=== PATIENT | male | born 1995 | race Caucasian/White ===

== ENCOUNTER → 2023-10-17 | Outpatient (CLI) | payer BC, SELFPAY ==
[2023-10-17 17:51] LABS: Hematocrit 44.8 % (40-54); Hemoglobin 15.6 g/dL (13.0-16.5)
[2023-10-17 18:03] LABS: ALB/GLOB Ratio 1.1 RATIO (0.9-2.4); AST(SGOT) 27 U/L (15-37); Alanine Aminotransfer ALT/SGPT 38 U/L (16-61); Albumin, Serum 4.1 g/dL (3.2-5.0); Alkaline Phosphatase 88 U/L (45-117); Anion Gap 6 (5-15); BUN 18 mg/dL (7-18); BUN/Creat Ratio 18.4 RATIO (10-20); Chloride 109 mmol/L (98-107); Cholesterol 148 mg/dL (200); Creatinine, Serum 0.98 mg/dL (0.70-1.30); EST Glomerular Filtration Rate 98 mL/min (>60); Est Glom Filt Rate - Afr Amer 119 mL/min (>60); Estradiol 21.3 pg/mL; Follicle Stimulating Hormone 2.2 mIU/mL; Globulin 3.6 g/dL (2.2-4.2); Glucose 88 mg/dL (74-106); High Density Lipoprotein 50 mg/dL; Luteinizing Hormone 9.5 mIU/mL; PSA,Total - Annual Screen 0.59 ng/mL (0.00-4.00); Potassium 3.8 mmol/L (3.5-5.1); Protein, Total 7.7 g/dL (6.4-8.2); Sodium Level 138 mmol/L (136-145); Thyroid Stim Hormone (TSH) 1.52 uIU/mL (0.358-3.74); Triglycerides 180 mg/dL; Very Low Density Lipoprotein 36 mg/dL (5-40)
[2023-10-22 12:09] LABS: PROLACTIN 15.7 ng/mL (3.6-31.5); Sex Hormone-binding Globulin 15.5 nmol/L (16.5-55.9); Testosterone, Free 8.26 ng/dL (5.00-21.00); Testosterone, Total 192 ng/dL (264-916)
== END | disposition home or self-care (01) ==
LOC: MTLAB 16:12
PROVIDERS: Referring Provider Registered Nurse; Visit Provider Registered Nurse
DX: Z12.5 Encounter for screening for malignant neoplasm of prostate (principal); R53.83 Other fatigue; R68.82 Decreased libido; R63.5 Abnormal weight gain; R35.0 Frequency of micturition; R39.16 Straining to void
CPT/HCPCS: 36415; 80053; 80061; 82627; 82670; 83001; 83002; 84146; 84153; 84270; 84402; 84403; 84443; 85014; 85018; 82626; G0103

== ENCOUNTER 2024-05-06 08:00 | Outpatient (RCR) | payer BC, SELFPAY ==
--- NOTE | 2024-05-06 09:05 | BH.SGPN.GN ---
Behaviors/Verbalizations/Mental Status: [] Eye contact is good. Motor activity is appropriate. Appearance is casual. Speech is Appropriate. Mood is anxious. Affect is congruent. Thoughts are linear and logical. No evidence of psychosis. Reviewed daily check in sheet and no reports of suicidal ideations or intent. Client Response/Progress/Benefit: [] Pt was an active participant in group discussions, first day in tx and engaged throughout. Attentive. Did well to identify 2 mental health wins including being able to get to group today and begin working more intentionally on his mental health. Additional win noted as getting his car started, reporting having to problem solve an unknown issue it had been having. Current stressor noted as struggling with managing being out of work while in tx. Benefited from group support, encouragement, and feedback. Will continue in IOP to prevent decompensation, promote mood stability, and increase use of healthy coping. Narrative Note: []
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
--- NOTE | 2024-05-06 10:10 | BH.SGPN.GN ---
Behaviors/Verbalizations/Mental Status: [] Pt alert and oriented, casually dressed and groomed. Eye contact good. Motor activity appropriate. Speech within normal limits. Affect congruent, mood depressed and anxious. Thoughts linear, logical, no signs of hallucinations or delusions. Client Response/Progress/Benefit: []Pt an active participant in group discussions on defining conflict (internal/external) and possible benefits to conflict. Attentive during psychoeducation on conflict styles (avoidant, accommodating, competing, cooperative) and engaged during group discussion in which peers identified the benefits and consequences to each conflict style. Pt identified that she tends to be avoidant with others but can easily switch to competing if he has been minimizing for too long. Benefited from increased awareness of the impact of conflict styles in mental health. Will continue in IOP tx to prevent decompensation, stabilize mood, and improve functioning to return to work. Narrative Note: []
--- NOTE | 2024-05-06 10:49 | BH.COMM_ITS ---
Communication Note Communication with Client Communication Note: Met with pt to complete initial paperwork and administer the CSSR-S screening and risk assessment. Pt is a moderate risk as pt denies any current SI, plan, or intent but he does admit to having active suicidal ideations a month ago that resulted in a hospitalization from April 24 to April 30, 2024. This was pt?s first hospitalization for suicide attempt. Pt had one previous suicide attempt when pt was 18 years old by overdose. Pt endorses thought of now, but no SI. No access to weapons. Pt is future oriented and reports being hopeful about treatment. Discussed case with Dr. Allen and pt will be admitted to [facility] tx with a diagnosis of MDD, recurrent severe without psychosis F 33.2
--- NOTE | 2024-05-06 11:53 | BH.MDN ---
Multi-Disciplinary Note Note 60-min Individual: Time Started:: 11:20 Date: 05/06/24 Purpose of session/treatment goals addressed:: To establish rapport, gather background psychosocial hx, and identify tx goals. Eye Contact:: Good Motor Activity:: Appropriate Appearance:: Casual Speech:: Appropriate Mood:: Anxious and Depressed Affect:: Congruent Thoughts:: Linear, Logical and No evidence of hallucinations/delusions noted Staff Interventions:: motivational interviewing, CBT techniques, rapport building, strengths perspective, treatment planning and goal setting Client Response:: This is the first day of treatment. States feeling ?hopeful? and excited to be in the program as he has not previously done group counseling. He was recently inpatient hospitalized due to worsening depression and suicidal ideation which he is hopeful the program will help him to better manage. Admits to a hx of struggles with treatment compliance and maintaining consistent providers due to difficulties in connecting with individual therapists in the past. Insight that not addressing his mental health needs led to hospitalization and impacted functioning both at home and work. When asked about goals for treatment pt states he would like to improve his ability to manage negative thoughts and better control my emotions, as well as rediscover who he is and what he enjoys in life outside of work and caregiving. He would also like to improve his communication and decrease interpersonal relationship conflict with his long-time girlfriend. Also has an interest in further processing his current occupation and whether this is the best fit for him. Risks/Concerns:: No current risks or concerns. Daily symptom tracker show sno suicidal ideations. Progress Toward Goals/Plan:: Progress limited as pt?s first day in IOP tx. Overall reports excitement regarding IOP group support, education, and routine of IOP on improving mental health. Endorses isolation, avoidance, and anhedonia on daily basis. Will continue in IOP to prevent decompensation, increase healthy support, in improve functioning Time Stopped:: 12:15
--- NOTE | 2024-05-07 02:00 | BH.SGPN.GN ---
Behaviors/Verbalizations/Mental Status: [] Eye contact is good. Motor activity is appropriate. Appearance is casual. Speech is Appropriate. Mood is dysthymic. Affect is congruent. Thoughts are linear and logical. No evidence of psychosis. Reviewed daily check in sheet and no reports of suicidal ideations or intent. Client Response/Progress/Benefit: [] Pt was an active participant in group discussions. Attentive. Did well to identify 2 mental health wins including being able to schedule an eye doctor appointment despite not liking the phone. Identified use of opposite action. Additional win noted as helping his girlfriend's grandpa around the barn. Current stressor noted as struggling with waking up at 330am and not being able to fall back to sleep today. Benefited from group support, encouragement, and feedback. Will continue in IOP to prevent decompensation, promote mood stability, and increase consistent use of healthy coping. Narrative Note: []
--- NOTE | 2024-05-07 11:30 | BH.NA ---
Physical Data Vital Signs Pulse Rate: 83 Blood Pressure: 140/70 Height/Weight Height: 1.75 m Weight:: 88.451 kg Weight in Pounds: 195.0 lbs Current Medication Compliance Medication Compliance Do you take your medication as prescribed?: Yes Nutritional History Appetite Nutritional Instructions: Describe your appetite:: Good Additional nutritional information:: Client states he has had an increased appetite. Functional Assessment Sleep Pattern Describe any problems with sleeping: Client states he sleeps about 4-5 hours per night. Sensory/Communication Assess Vision Problems Do you have any vision problems?: Glasses Communication Problems Do you have difficulty understanding what people are saying?: No Medical Problems/History Metabolic Conditions Metabolic: Other (See comments) (low testosterone) Pain Assessment Do you have acute or chronic pain?: No Surgical History Surgical History Have you had any surgeries? If so, list type and date:: Yes (ankle/foot x2, wisdom teeth, tonsils, ear tubes) Substance Abuse Substance Abuse Please describe substance abuse in the last 30 days:: Client denies current alcohol use. Client states he has been a cigarette smoker since age 18 and currently smokes 1/2 pack per day. Client currently uses marijuana daily. Client reports between ages [age] some cocaine, Xanax, Adderall, Vyvanse use. Client states he usually has about 350-400mg caffeine per day, usually a cup of coffee and 1-2 energy drinks. Mental Status Summary Mental Status Significant Findings/Observations on Appearance and Mood:: Client is alert and oriented x 4. Client is casually groomed. Client is cooperative with assessment. Client makes good eye contact. Client's voice has normal rate and volume. Client has a somewhat restricted affect. Client makes logical associations and has normal processing. Client states he is no longer having daily hallucinations of shadows, but does admit mild paranoia (people judging him, following) has been ongoing. Client denies active SI, denies intent/plan. Suicide Assessment Suicidal Ideation Are you currently or have you been suicidal in the past?: Yes Suicidal Intentional Rating Scale (SIRS): Suicidal thoughts (past) Physician Notification Past Psychiatric History MH Treatment Hx Past Psychiatric Medications:: Wellbutrin, Trintellix Age of first mental health symptoms: Client states he was diagnosed with dysthymic disorder as a kid and was first on medications for his mental health at age 15. Describe (age, circumstance, etc) any past hospitalizations: [facility] 04/24-04/30/24 for SI, paranoia, hallucinations Current providers for mental health treatment (counselor, psychiatrist, test case developer, etc.): [facility] Risk Assessment Age Age: Less than 60 Mental Status Mental Status: Willing & able to ask for assistance when needed Physical Status Physical Status: No problems Impairments Impairments: None Elimination Elimination: Continent AND independent Gait or Balance Gait or Balance: Walks independently Hx of Falls History of falls in the past 6 months: No known history Medications/Substances Psychotropics:: Antidepressants, Antipsychotics and Antihistamines (e.g. Benadryl) Medications/substances used within the past 24 hours or ordered to administer: 3 or more of the medications/substances listed above Total Score Total Points:: 2 RN Summary of Impressions Impressions Recommendations Impressions: Psychiatric Issues: 1. Major depressive disorder, recurrent, severe without psychosis 2. Anxiety disorder, NOS (F41.9) 3. PTSD 4. Strong cluster B traits 5. History of alcohol use disorder 6. Primary support issues Level of Care How do the client's current symptoms and functional deficits support need for this level of care?: Client was referred to IOP after a recent hospitalization at [facility] 04/24-04/30/24 for SI, paranoia and hallucinations. Client states in January 2024, his grandma unexpectedly and he states he had a very hard time with it. Client states I just wanted to disappear. Client reports some mild paranoia, which he states has been ongoing for a long time. Client states he had been having daily hallucinations of shadows, but states those have basically stopped since hospitalization. Client denies current SI. Client does endorse avoidance, some irritability, and isolation still. IOP will promote gains and prevent further decompensation while providing social support and skills training.
[2024-05-07 11:52] VITALS: BP 140/70; PULSE 83
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
--- NOTE | 2024-05-07 12:32 | BH.DR.ITP ---
Initial Treatment Plan Patient Information Visit Information: ADMISSION DATE: EXPECTED LOS: 4-6 weeks Problems/Symptoms Problem #1:: Depression Symptom:: Sadness, hopelessness, guilt, worthlessness, recent suicidal ideation, current passive thoughts of , irritability Problem #2:: Anxiety Symptom:: Worry, panic attacks, rumination, avoidance, flashbacks, triggers
--- NOTE | 2024-05-11 09:05 | BH.SGPN.GN ---
Behaviors/Verbalizations/Mental Status: [] Eye contact is good. Motor activity is appropriate. Appearance is casual. Speech is Appropriate. Mood is anxious. Affect is congruent. Thoughts are linear and logical. No evidence of psychosis. Reviewed daily check in sheet and no reports of suicidal ideations or intent. Client Response/Progress/Benefit: [] Pt participated at times. Attentive. Daily symptom tracker notes 5 for anxiety and /5 for depression. Mood is ?anxious?. Introducing habit and routine changes to benefit mental health. Reports ? putting music on this morning? which was a small task however was extremely helpful to increase motivation and energy. He continues to struggle overall with depression and anxiety on a daily basis however has seen improvement. Benefited from group support, encouragement, and feedback. Will continue in IOP to maintain safety, prevent decompensation/re-admission, and improve functioning to return to work Narrative Note: []
--- NOTE | 2024-05-11 10:10 | BH.SGPN.GN ---
Behaviors/Verbalizations/Mental Status: []Patient was alert and oriented, casually dressed and groomed. Eye contact good. motor activity appropriate. speech within normal limits. Affect congruent, mood anxious. Thoughts linear, logical, no signs of hallucinations or delusion. Client Response/Progress/Benefit: [] Pt participated in the group discussions AEB providing input, nodding and taking notes. Attentive during psychoeducation Goal Setting. Participated during the discussion on common barriers. Pt stated personal barriers to accomplishing goals include lack of motivation and fear of changes that come with goals. Group also identified benefits of goals as sense of purpose, improved self-confidence, more motivation for other goals, sense of accomplishment, and improved mental health. Pt identified personal benefits to goal setting. Benefited from increased awareness of mental health benefits of goals as well as psychoeducation on SMART goal criteria. Will continue in IOP to prevent decompensation, improve distress tolerance skills, and reduce negative self-talk. ??? Narrative Note: []
--- NOTE | 2024-05-11 12:32 | BH.MDN ---
Multi-Disciplinary Note Note 45-min Individual: Time Started:: 11:30 Date: 05/11/24 Purpose of session/treatment goals addressed:: Purpose of session was to identify behaviors and [id number] processes reinforcing pt sx of depression and anxiety. Eye Contact:: Good Motor Activity:: Appropriate Appearance:: Casual Speech:: Appropriate Mood:: Anxious and Dysthymic Affect:: Congruent Thoughts:: Linear, Logical and No evidence of hallucinations/delusions noted Staff Interventions:: thought challenging, psychoeducation on: (BPD relationship cycle), CBT techniques, strengths perspective, goal setting and taught coping skills (distress tolerance) Client Response:: This is pt?s second week of treatment, reports finding the shared group experience to be beneficial in normalizing pt?s mental health struggles as well as encouraging consistent engagement in groups and individual session. Noted that he has felt more hopeful and motivated since leaving inpatient hospitalization and is beginning to worry he will ?lose steam? and struggle to fall back into old patterns of behavior once he is comfortable again. Therapist normalized this for pt and discussed importance of continued therapy post IOP d/c as well as developing a continued maintenance plan to reduce likelihood of decompensation. Pt went on to describe trying to adjust to being off of work while in IOP tx and is finding it hard to know what to do with himself throughout the day. 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 Reports that when home alone his thoughts begin to wander to unhealthy places, Described negative self-talk, fear of failure, and worrying about his girlfriend rejecting or cheating on him. Stated this leads to pt acting as if these thoughts are true, often times resulting in conflict within his relationship. Receptive of psychoeducation on Borderline Personality Disorder and common traits within the BPD relationship cycle. Discussed skills for pt to practice sitting with discomfort and not acting on urges to seek reassurance or test his girlfriend?s loyalty to the relationship. Risks/Concerns:: No current risks or concerns. Daily symptom tracker show sno suicidal ideations. Progress Toward Goals/Plan:: Some progress noted. Pt reports connecting with fellow participants and is finding shared environment to be supportive. Pt noted that he is struggling with medication frustrations due to feeling hazy and disconnected after taking his morning medications. Additionally, pt noted adding unnecessary stress to his daily life due to struggling with adjusting to time off of work. Expressed feeling he should be doing more to contribute to household responsibilities. Continues to endorse racing thoughts, restlessness, loss of enjoyment, and irritability. Recommended continued IOP tx to improve functioning, increase self-confidence, and prevent decompensation. Time Stopped:: 12:10
--- NOTE | 2024-05-13 09:05 | BH.SGPN.GN ---
Behaviors/Verbalizations/Mental Status: [] Eye contact is good. Motor activity is appropriate. Appearance is casual. Speech is Appropriate. Mood is anxious. Affect is congruent. Thoughts are linear and logical. No evidence of psychosis. Reviewed daily check in sheet and no reports of suicidal ideations or intent. Client Response/Progress/Benefit: [] Pt was an active participant in group discussions. Attentive. Daily symptoms tracker notes 3/5 for anxiety and /5 for depression. Reports improvement in his sleep schedule. Discussed how this positively impacts his mental health. Reports that he is engaged more with his family and is beginning to get pleasure from activities. While he is ?staying busy? he continues to report that his depression, anxiety, and apathy continues to impact his functioning. 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 Progress noted. Benefited from group support, encouragement, and feedback. Will continue in IOP to maintain safety, prevent decompensation/re-admission, and improve functioning to return to work. Narrative Note: []
--- NOTE | 2024-05-13 10:15 | BH.SGPN.GN ---
Behaviors/Verbalizations/Mental Status: []Client alert and oriented, casually dressed and groomed. Eye contact good. Motor activity appropriate. Speech within normal limits. Affect constricted, mood depressed. Thoughts linear, logical, no signs of hallucinations or delusions Client Response/Progress/Benefit: [] pt responded well to session, contributing to discussion and engaged during the activity. Group identified the benefits of change which included: personal growth, increased confidence, improving mental health, progressing, and becoming resilient. Worked with the group to identify barriers to change and pt identified personal barriers as fear of failure, fear of success, and time. pt participated along with group in activity where they discussed the emotions related to change. Benefited from increased awareness and understanding of emotions, benefits, and barriers related to change. Will continue IOP tx to prevent decompensation, gain healthy coping skills, and improve daily functioning. Narrative Note: []
--- NOTE | 2024-05-14 11:10 | BH.SGPN.GN ---
Behaviors/Verbalizations/Mental Status: [] Pt alert and oriented, casually dressed and groomed. Eye contact fair. Motor activity appropriate. Speech within normal limits. Affect congruent, mood depressed. Thoughts linear, logical, no signs of hallucinations or delusions. Client Response/Progress/Benefit: [] Pt responded well to session, engaged in the experiential activity and attentive throughout group processing. Interactive discussion with peers on what FOF has kept them from which included; trying new things, therapy, and medications as all as starting or ending relationships/jobs. Pt completed fear of failure worksheet and was able to identify thoughts and behaviors that reinforce personal fear of failure. Pt participated in small group discussion regarding strategies to overcome fear of failure. Identified struggling most with thinking i'm not good enough. Strategies to overcome FOF identified as not assuming others' expectations or boundaries. ?Appeared to benefit from increased knowledge of strategies to combat fear of failure and gaining self-awareness. Pt will continue IOP tx to prevent decompensation/re-admission to psych, increase healthy coping, and improve functioning to return to work. Narrative Note: []
== END 2024-05-15 23:59 ==
LOC: BHIOP 08:00
PROVIDERS: Referring Provider Psychiatry & Neurology Psychiatry; Visit Provider Psychiatry & Neurology Psychiatry
DX: F33.2 Major depressive disorder, recurrent severe without psychotic features (principal)
CPT/HCPCS: S9480; 90834; 90837; 90853

== ENCOUNTER 2024-05-18 07:37 | Outpatient (RCR) | payer BC, SELFPAY ==
--- NOTE | 2024-05-14 10:15 | BH.SGPN.GN ---
Behaviors/Verbalizations/Mental Status: []Pt alert and oriented, neatly dressed and groomed. Eye contact good. Motor activity appropriate. Speech within normal limits. Affect congruent, mood euthymic. Thoughts linear, logical, no signs of hallucinations or delusions. Client Response/Progress/Benefit: [] Pt responded well to session, engaged in the experiential activity and attentive throughout group processing. Pt reported fear of failure has kept Pt from pursing passions. Pt completed fear of failure worksheet and was able to identify thoughts and behaviors that reinforce personal fear of failure including negative self-talk, isolation, and self-sabotage. Pt participated in small group discussion regarding strategies to overcome fear of failure. Identified wanting to work on thinking in the hood and practicing self-compassion. ?Appeared to benefit from increased knowledge of strategies to combat fear of failure and gaining self-awareness. Pt will continue IOP tx to prevent decompensation, combat distortions, and increase distress tolerance skills. Narrative Note: []
[2024-05-16 01:34] VITALS: BP 140/70; PULSE 83
--- NOTE | 2024-05-18 09:00 | BH.SGPN.GN ---
Behaviors/Verbalizations/Mental Status: [] Eye contact is good. Motor activity is appropriate. Appearance is casual. Speech is Appropriate. Mood is anxious. Affect is congruent. Thoughts are linear and logical. No evidence of psychosis. Reviewed daily check in sheet and no reports of suicidal ideations or intent. Client Response/Progress/Benefit: [] Pt participated at times during the group discussions. Attentive. Daily symptom tracker notes 2/5 for anxiety and 1/5 for depression. Pt reports being more consistent with healthy habits such as daily exercising, however continues to struggles with anxiety and overall mental health. He is adjusting to IOP and being away from work. Situational stressors are causing significant ruminations which are impacting overall mood and functioning. Benefited from group support, encouragement, and feedback. Will continue in IOP to maintain safety, prevent decompensation/re-admission to psych, and to improve functioning to return to work Narrative Note: []
--- NOTE | 2024-05-18 10:20 | BH.MDN ---
Multi-Disciplinary Note Note 30-min Individual: Time Started:: 10:20 Date: 05/18/24 Purpose of session/treatment goals addressed:: Expressed stress, anger, and depression related to disability paperwork during process group. This stressor was causing ruminations, financial concerns, and overall mental health functioning inhibiting his able to focus on IOP. Eye Contact:: Good Motor Activity:: Appropriate Appearance:: Casual Speech:: Appropriate Mood:: Anxious and Irritable Affect:: Congruent Thoughts:: Linear, Logical and No evidence of hallucinations/delusions noted Staff Interventions:: thought challenging and other (processed and problem-solved for the entire session. ) Client Response:: Pt was admitted to psychiatric unit on 04/24/24 and has not returned to work. He has communicated effectively with his employer regarding expected return to work, however the third [employer] party company that manages his FMLA has not received any formal paperwork. According to patient he has spend several hours speaking with his company and was assured the necessary form were faxed last week. No paperwork has yet been received by our program. Pt's 14 day fabio period to complete paperwork has passed and he is anxious and concerned. Uncertain and has limited benefit from contacting the source. Currently finances are tight and has has bills due. This stressor has made it extremely difficulty to focus on his mental health. Risks/Concerns:: No risks or concerns noted. Denies SI. Progress Toward Goals/Plan:: Limited progress due in part to ruminations related to FMLA paperwork. Majority of the session was used to problem-solve solutions and introduce coping strategies to help mitigate the impact. Did well to reframe and challenge thoughts to decrease emotional intensity. I just woke up focused on this. Able to brainstorm a few solutions and encouraged pt to reach out today. Glad I came her first and didn't call them. Session was able to use distressing situation as on opportunity to work on distress tolerance, acceptance, problem-solving, and assertive communication skills. Time Stopped:: 10:45
--- NOTE | 2024-05-18 11:15 | BH.SGPN.GN ---
Behaviors/Verbalizations/Mental Status: []Pt alert and oriented, casually dressed and groomed. Eye contact good. Motor activity appropriate. Speech within normal limits. Affect congruent, mood depressed and anxious. Thoughts linear, logical, no signs of hallucinations or delusions. Client Response/Progress/Benefit: [] Pt responded well to session AEB Pt listening attentively to others and providing input during group discussion on the pay offs and costs of the different communication styles. Pt able to connect how current communication style impacts mental health. Connected with peers? comments about importance of using assertive communication. Pt seemed to benefit from increasing awareness of healthy strategies to improve communication and worked within small group to identify assertive communication approaches to example scenarios. Identified wanting to work on using more I statements when communicating with others. Will continue IOP tx to prevent decompensation, improve mood stability, and improve daily functioning. ? Narrative Note: []
--- NOTE | 2024-05-20 09:02 | BH.SGPN.GN ---
Behaviors/Verbalizations/Mental Status: [] Client alert and oriented, casual appearance. Eye contact good. Motor activity appropriate. Speech within normal limits. Affect congruent, mood euthymic. Thoughts linear, logical, no signs of hallucinations or delusions. Reviewed client's symptom tracker, no risk for suicidal ideation, plan, or intent. Client Response/Progress/Benefit: [] Client responded well to session AEB listening to others and sharing thoughts/feelings. Client reported mental positive as being consistent with exercising 30 to 45 minutes a day. Client noted he has found exercise to be helpful for his mood and energy levels. Client stated mental positive as getting approved for a small loan to help with his bills because recently has been struggling with finances and this has been a significant stressor for him. Client stated current stressor as not having enough structure throughout his week and he finds having too much downtime to be negative for his mental health. Appeared to benefit from support from peers. Will continue IOP tx to challenge distorted thoughts, improve healthy coping skills, and prevent decompensation. Narrative Note: []
--- NOTE | 2024-05-20 10:10 | BH.SGPN.GN ---
Behaviors/Verbalizations/Mental Status: [] Pt alert and oriented, casually dressed and groomed. Eye contact good. Motor activity appropriate. Speech within normal limits. Affect full, mood content. Thoughts linear, logical, no signs of hallucinations or delusions. Client Response/Progress/Benefit: [] Pt was an engaged participant AEB listening attentively to others, taking notes, and providing feedback in group discussions. Attentive during psychoeducation AEB by note taking. Pt worked along with peers in groups to define inappropriate guilt and appropriate guilt. Group worked together to provide examples of both inappropriate and appropriate guilt. Group identified a canceling plans and snapping at kids as appropriate guilt examples. Group identified setting a being in a down mood and taking responsibility for other?s emotions as having inappropriate guilt. Pt able to connect impact inappropriate guilt can have on MH and overall functioning. Identified struggling at times with taking responsibility for his girlfriend's emotions resulting in inappropriate guilt. Benefited from increased awareness of guilt and the differences between appropriate and inappropriate guilt. Pt to continue IOP tx to prevent decompensation, gain healthy coping skills, and increase emotion regulation skills. Narrative Note: []
--- NOTE | 2024-05-20 12:06 | PCM.BH.PN_ITS ---
Progress Note Progress Note: History of Present Illness/Interim History: The patient is a 29-year-old single male with a history who is seen in follow-up at the [facility] behavioral health IOP. I last saw the patient 2 weeks ago and at that time his hydroxyzine was reduced from 50 mg to 25 mg. He admits that he is less tired and has less brain fog since the decrease in this medication. His mood is good and his anxiety is well-controlled. He feels he has learned valuable skills in the IOP and is able to apply them to his mental health issues. He does report increased appetite and some weight gain in recent weeks that he feels might be due to the Abilify. He is exercising and eating healthily also. He denies passive thoughts of , suicidal ideation, homicidal ideation, hallucinations or delusions. Current Psychiatric Medications: [] Abilify 5 mg p.o. daily (x 3 weeks); Lexapro 10 mg p.o. daily (x 3 weeks); trazodone 50 mg p.o. nightly; hydroxyzine 25 mg once or twice daily as needed for anxiety. Mental Status Examination: [] The patient is a 29-year-old male who appears normal for stated age and is casually dressed and groomed with good hygiene. He has no psychomotor agitation or retardation and is ambulatory with a normal gait. Eye contact is good and speech is normal rate and rhythm and fluent with no pressure. Mood is depressed and anxious. Affect is mildly constricted. Thought process is goal-directed and organized. Thought content: There is no evidence of passive thoughts of , suicidal ideation, homicidal ideation, plan for suicide, hallucinations or delusions. Reality testing is intact. Judgment is intact. Insight fair. Impulsivity is moderate to high. Diagnoses: [] 1. Major depressive disorder, recurrent, severe without psychosis 2. Anxiety disorder, NOS (F41.9) 3. PTSD 4. Strong cluster B traits 5. History of alcohol use disorder 6. Primary support issues Plan: [] The patient will continue the IOP in behavioral health at [facility] as the structure, support, education and group therapy will hopefully prevent worsening of the patient's symptoms which could require rehospitalization. He felt safe during the interview and if it anytime he does not feel safe he has agreed to let us know or go to the emergency room. The patient agrees to add metformin 500 mg p.o. twice daily to help prevent weight gain from his Abilify. Prescription is sent in for this. The risk, options, possible complications and side effects of the medications were discussed with the patient and he understands and accepts these. He agrees also to stay sober from all drug or alcohol use and not to use any energy drinks. He will continue to follow-up with his outpatient providers and I will see the patient in follow-up while he is in the IOP.
--- NOTE | 2024-05-20 12:36 | BH.MDN ---
Multi-Disciplinary Note Note 45-min Individual: Time Started:: 11:29 Date: 05/20/24 Purpose of session/treatment goals addressed:: To address current stressors impacting pt mood stability, as well as begin working on promoting self-care balance and engagement. Eye Contact:: Good Motor Activity:: Appropriate Appearance:: Casual Speech:: Appropriate Mood:: Anxious and Depressed Affect:: Congruent Thoughts:: Linear, Logical and No evidence of hallucinations/delusions noted Staff Interventions:: thought challenging, motivational interviewing, CBT techniques, strengths perspective and goal setting Client Response:: Pt receptive of session, engaged throughout. Reports struggling with continued frustrations associated with short-term disability paperwork. Expressed some relief following conversation with cardiac rehabilitation program director regarding the paperwork and feels more hopeful as a result. Went on to share difficulties in adjusting to not having a consistent schedule since inpatient hospitalization about a month ago. Describes struggling with knowing how to spend his time, worry about finances, and being able to transition back to work after having so much time off. Receptive of working with therapist to explore how he?s spending time as well as ways to better utilize the time off. 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 Noted struggling most with daytime and has realized that since beginning coparenting responsibilities with his girlfriend 3 years ago, he has slowly lost himself and forgotten what he enjoys. Noted limited to no self-care in the last year. Fear that if he begins engaging in regular self-care now, he will not be able to maintain the practices upon return to work. Pt receptive of thought challenge and noted that he and his girlfriend may be able to trade off time in the evening where one person practices self-care while the other manages caregiving. Believes she will be receptive as pt is concerned his girlfriend isn't doing much self-care sheldon either. Shared plans to try incorporating exercise and games with friends into his schedule this week. Risks/Concerns:: None noted, Pt denies SI plan or intent as of this date 05/20/24 Progress Toward Goals/Plan:: Progress variable. Pt reports connecting with groups and finding the program to be benefical. Notes applying deep breathing, meditation, stepping away, and saying the alphabet in his head when feeling increased stress. Pt reports this is helpful and his irritability is reduced as a result. Expressed ongoing difficulties with feeling like a burden, a need to try and been constantly productive or doing something and fear of failure. Recommended continued IOP tx to improve mood stability, promote self-compassion, and prevent decompensation. Time Stopped:: 12:13
--- NOTE | 2024-05-22 09:05 | BH.SGPN.GN ---
Behaviors/Verbalizations/Mental Status: [] Eye contact is good. Motor activity is appropriate. Appearance is casual. Speech is Appropriate. Mood is anxious. Affect is congruent. Thoughts are linear and logical. No evidence of psychosis. Reviewed daily check in sheet and no reports of suicidal ideations or intent. Client Response/Progress/Benefit: [] Pt participated at times during the group discussion. Attentive. Daily symptom tracker notes /5 for anxiety. Overall her reports that his mood is ?better? and ? I?m taking time to acknowledge that?. Less impulsive and irritable which has helped with decision-making as well as relationships. Emotion is content. Progress noted. Benefited from group support, encouragement, and feedback. Will continue in IOP to maintain safety, prevent decompensation/re-admission to psych unit, and improve functioning to return to work. Narrative Note: []
--- NOTE | 2024-05-22 10:10 | BH.SGPN.GN ---
Behaviors/Verbalizations/Mental Status: [] Eye contact is good. Motor activity is appropriate. Appearance is casual. Speech is Appropriate. Mood is content. Affect is congruent. Thoughts are linear and logical. No evidence of psychosis. Client Response/Progress/Benefit: [] Pt receptive of session, actively engaged throughout AEB taking notes, providing input, and contributing in group discussion. Appeared to connect with group topic of automatic thoughts and cognitive distortions, as well as the impact of thought patterns on mental health, coping behaviors, and relationships. This particular group is very heavy on psychoeducation and pt appeared to connect with distortions and how they can impact functioning. Identified struggling with jumping to conclusions, overgeneralization, and labeling distortions. Pt appeared to benefit from gaining insight on distorted thinking patterns and how this impacts overall mental health. Will continue IOP to improve ability to function, and prevent decompensation. Narrative Note: []
--- NOTE | 2024-05-22 11:12 | BH.SGPN.GN ---
Behaviors/Verbalizations/Mental Status: [] Eye contact is good. Motor activity is appropriate. Appearance is casual. Speech is Appropriate. Mood is content. Affect is congruent. Thoughts are linear and logical. No evidence of psychosis. Client Response/Progress/Benefit: [] Pt was an active participant during group discussion. Pt was placed in a smaller group for activity and participated in identifying/combatting example distortions with peers. Pt was engaged in the smaller group, participated in group interactions to brainstorm answers, and appeared to be comprehending cognitive distortions. Pt stated could connect with many of the distortions covered in group. Benefited from gaining further insight and awareness of cognitive distortions as well as practicing ways to reframe and challenge thoughts. Will continue in IOP tx to improve emotinal regulation, increase healthy coping skills, and prevent decompensation. Narrative Note: []
--- NOTE | 2024-05-25 09:00 | BH.SGPN.GN ---
Behaviors/Verbalizations/Mental Status: [] Eye contact is good. Motor activity is appropriate. Appearance is casual. Speech is Appropriate. Mood is anxious. Affect is congruent. Thoughts are linear and logical. No evidence of psychosis. Reviewed daily check in sheet and no reports of suicidal ideations or intent. Client Response/Progress/Benefit: [] Pt participated at times during the group discussion. Attentive. Daily symptom tracker notes 2/5 for anxiety and /5 for depression. ?I?m on a good sleep schedule?. Shared struggles over the weekend reporting ?bouts of depression? and an anxiety attack while shopping. Progress noted. Benefited from group support, encouragement, and feedback. Will continue in IOP to prevent decompensation/re-admission to psych unit, maintain safety, increase healthy coping, and improve functioning to return to work. Narrative Note: []
--- NOTE | 2024-05-25 10:15 | BH.SGPN.GN ---
Behaviors/Verbalizations/Mental Status: []Client alert and oriented, casually dressed and groomed. Eye contact good. Motor activity appropriate. Speech within normal limits. Affect congruent, mood anxious. Thoughts linear, logical, no signs of hallucinations or delusions. Client Response/Progress/Benefit: [] Pt was an active participant AEB taking notes and engaging in group activity. Connected with the topic of pitfalls and listened to group discussion on barriers that prevent from choosing a healthier path to mental wellness. Group worked together to identify examples of personal pitfalls. These examples included; shutting down, not asking for help, negative thinking patterns, and self-deprecation. Pt benefited from group as Pt learned to better identify potential barriers to improving mental health symptoms. Pt will continue IOP tx to prevent decompensation, improve distress tolerance skills, and increase ability to function at work. Narrative Note: []
--- NOTE | 2024-05-25 11:15 | BH.SGPN.GN ---
Behaviors/Verbalizations/Mental Status: []Client alert and oriented, casually dressed and groomed. Eye contact good. Motor activity appropriate. Speech within normal limits. Affect congruent, mood content. Thoughts linear, logical, no signs of hallucinations or delusions. Client Response/Progress/Benefit: [] Pt receptive of session, engaged throughout AEB Pt actively listening and contributing to discussion as well as taking notes.? Pt participated in the experiential activity and did well to communicate ideas with peers and manage emotions. Pt attentive as group processed how the emotions and perspective of the group impacted the activity. Group worked together to identify different coping skills to help manage pitfalls. Pt identified a pitfall they struggle with as low motivation. Pt plans to work on their pitfall by taking small steps to begin opposite action daily. Benefited from identifying personal pitfalls and strategies to overcome these pitfalls. Pt will continue IOP tx to prevent decompensation, improve daily functioning, and gain skills to improve mood stability. Narrative Note: []
--- NOTE | 2024-05-27 09:00 | BH.SGPN.GN ---
Behaviors/Verbalizations/Mental Status: [] Eye contact is good. Motor activity is appropriate. Appearance is casual. Speech is Appropriate. Mood is content. Affect is congruent. Thoughts are linear and logical. No evidence of psychosis. Reviewed daily check in sheet and no reports of suicidal ideations or intent. Client Response/Progress/Benefit: [] Pt was an active participant in group discussions. Attentive. Daily symptom tracker notes 2/5 for depression and /5 for anxiety. Did well to identify 2 mental health wins including continuing to engage in self-care, reporting he got a haircut and new glasses. Additionally, identified a sense of relief following positive news about his FMLA. Stressor noted as increased restlessness as he does not know what to do with himself when not at IOP. Benefited from group support, encouragement, and feedback. Will continue in IOP to prevent decompensation, promote ongoing mood stability, and increase healthy coping. Narrative Note: []
--- NOTE | 2024-05-27 10:00 | BH.TPR ---
Treatment Plan Review Demographics Date of Admission:: 05/06/24 Date of Treatment Plan Review:: 05/27/24 Admitting Diagnoses:: 1. Major depressive disorder, recurrent, severe without psychosis 2. Anxiety disorder, NOS (F41.9) 3. PTSD 4. Strong cluster B traits 5. History of alcohol use disorder Current Diagnoses:: F33.2 Patient Status Patient's Response to Treatment:: Pt is responding somewhat well to IOP tx AEB pt's consistent attendance, report of benefitting from group support and education, and self-report of learning healthy coping skills. Pt is engaged in group sessions, and is doing well to verbally contribute despite reports of anxiety in social settings. Pt reports medication compliance and pt does well with completing homework. Pt does however struggle with consistent application of thought challenging, boundary setting goals, and positive self-talk. As a result of inconsistent application of skills directed towards addressing negative core beliefs and improving confidence and pleasure, Pt's overall DSM-5 scores have only decreased marginally since admission. Status of Current Problems and Symptoms: Pt's symptoms of anxiety and depression have decreased since admission and pt reports a reduction in isolation as well, though progress in these areas remain limited given pt inconsistent application of skills outside of the treatment environment. Pt continues to struggle with depression related to adjusting to being off work, familial conflict, anxiety related to negative core beliefs and poor boundaries, not feeling capable of advocating for himself without creating conflict in relationships, and negative thinking patterns. Pt's depression is decreasing, but pt reports ongoing feelings of being a burden, purposelessness, and worthlessness. Progress Problem #1: Problem Name:: Depression, SI, worthlessness Status of Goals:: Objective 1- in progress. Pt?s DSM-5 scores for depression have decreased since admission. Pt has gained awareness of coping mechanisms that reinforce depression like isolation and self-criticism, and pt has been working on reducing this. Pt has made progress in getting back into activities he enjoys, such as video games and car mechanics. Pt continues to endorse depressive symptoms such as feeling hopeless, like a burden, and low motivation more than half the days. Objective 2- in progress. Pt is learning about mistaken beliefs and how his self-talk often triggers depression and feelings of worthlessness. Pt continues to struggle with self-compassion and replacing negative self-talk with more affirmative statements. Additionally, pt recognizes that SI is often triggered by perceived rejection or feelings of being out of control and is working on learning how to cope with this. Team Recommendations:: Treatment team recommends pt continue to work on these tx goals. Therapist also encourages pt to increase communication with healthy supports, increased engagement in activities outside the home to improve mood and increase support net, and use of healthy coping skills to manage depression and reduce isolation. Pt was encouraged to continue setting daily goals to reduce isolation and increase motivation as well. Problem #2: Problem Name:: Anxiety, irritability, mood dysregulation Status of Goals:: Objective 1- in progress. Per pt?s DSM-5 pt?s anxiety has decreased by since admission. Pt has learned healthy coping skills and does report benefitting from the psychoeducation on distorted thoughts as well as in group sessions. Pt does however report difficulties in consistently applying the grounding skills he is learning outside of the group setting as well. Objective 2- in progress. Pt reports he has been gaining more awareness of negative thinking patterns that reinforce anxiety. Pt is continuing to make small strides towards daily goals of thought challenging and self-compassion Team Recommendations:: Treatment team recommends pt continue to work on these tx goals. Therapist also encourages pt to communicate with supports and reduce self-sabotaging behaviors like isolation and self-deprecation.
--- NOTE | 2024-05-27 13:11 | BH.MDN_ITS ---
Multi-Disciplinary Note Note 45-min Individual: Time Started:: 10:40 Date: 05/27/24 Purpose of session/treatment goals addressed:: Purpose of session was to aid pt in processing a decision he has been contemplating regarding return to work plans. Eye Contact:: Good Motor Activity:: Appropriate Appearance:: Casual Speech:: Appropriate Mood:: Anxious and Dysthymic Affect:: Congruent Thoughts:: Linear, Logical and No evidence of hallucinations/delusions noted Staff Interventions:: thought challenging, motivational interviewing, CBT techniques and other (decisional balance, effective problem solving strategies) Client Response:: Pt receptive of session, openly discussed current stressors and areas of progress. Engaged throughout. Reports struggling with increased internal conflict the last few days. 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 Described fear that he will look back on his life and regret not doing something different; however, is aware of his history of ?job hopping? as well. Reports ?I go through waves of needing change? and noted that he has a lifelong history of changing when bored or tired of something. Noted that he does not want to make a change impulsively. Upon further discussion, pt revealed he has been wanting to go back to school for data analytics for the last two years. Shared starting college applications on various occasions and then begins to second-guess himself. Expressed fear of failure, missing out, and being a burden as common thoughts preventing him from pursuing this further. Reports that the family relies on his income as well as he does not want to add additional financial strain. Worked with therapist to identify opportunities to explore this interest more before committing to a 2-year program. 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 Risks/Concerns:: Daily symptom tracker notes no suicidal ideations, plan, or intent. Progress Toward Goals/Plan:: Progress noted. Pt reports improved mood and less rumination regarding other's thoughts, feelings, opinions about him. Shared focusing on his values and reminding himself of his worth through positive self- talk. Reports beginning to more actively prioritize self-care which is aiding in improved mood stability and reduction of stress. Continues to report anxiety and uncertainty surrounding return to work. Recommended continued IOP tx to maintain gains, promote skill application, and prevent decompensation. Time Stopped:: 11:25
--- NOTE | 2024-05-28 09:05 | BH.SGPN.GN ---
Behaviors/Verbalizations/Mental Status: [] Pt alert and oriented, neatly dressed and groomed. Eye contact good. Motor activity appropriate. Speech within normal limits. Affect congruent, mood euthymic. Thoughts linear, logical, no signs of hallucinations or delusions. Reviewed pt?s symptom tracker, no risk for suicidal ideation, plan, or intent 05/28/24. Client Response/Progress/Benefit: []Pt was an active participant in group discussions. Attentive. Able to identify mental health wins including practicing mindfulness through earthing yesterday and allowing himself to enjoy the good mood he is currently feeling. Pt's stressor today is I'm having a hard time being comfortable with my free time. Pt stated feeling content this morning. Pt receptive to feedback from peers which pt reported was helpful. Progress noted. Benefited from group support, encouragement, and feedback. Will continue in IOP to reinforce healthy coping skills, combat distortions, and improve self-confidence. Narrative Note: []
--- NOTE | 2024-05-28 10:15 | BH.SGPN.GN ---
Behaviors/Verbalizations/Mental Status: [] Eye contact is good. Motor activity is appropriate. Appearance is casual. Speech is Appropriate. Mood is euthymic. Affect is full, Thoughts are linear and logical. No evidence of psychosis Client Response/Progress/Benefit: [] Pt engaged in session AEB listening attentively to others and providing input throughout. Pt engaged in activity, able to connect how it can be uncomfortable and difficult to practice acceptance when situations are out of one?s own control. Worked with peer group to define acceptance and identify the benefits that acceptance can bring. Benefits included; reduce stuckness, reduced stress, helps one to focus on situations we can change, and decreased negative self-talk. Seemed to benefit from increased awareness of the meaning as well as the importance of acceptance. Will continue in IOP to prevent decompensation/re-admission to psych unit, increase healthy coping, and improve functioning to return to work. Narrative Note: []
--- NOTE | 2024-05-28 11:15 | BH.SGPN.GN ---
Behaviors/Verbalizations/Mental Status: []Pt alert and oriented, casually dressed and groomed. Eye contact fair. Motor activity appropriate. Speech within normal limits. Affect congruent, mood content. Thoughts linear, logical, no signs of hallucinations or delusions. Client Response/Progress/Benefit: [] Pt responded well to session AEB taking notes and contributing to discussion throughout. Pt engaged as group continued discussion on acceptance and the mental health benefits of practicing acceptance. Pt and peers identified what makes acceptance challenging and pt completed a self-reflection exercise on what is hard to accept in pt's life. Pt identified something that is currently hard to accept as his grandfather's disappointment in him. Client stated by not accepting this it leads to feeling not good enough and like a failure. Group identified strategies to increase acceptance. Pt noted wanting to work on focusing on self-compassion. Pt appeared to benefit from gaining insight and learning strategies to increase acceptance. Pt will continue IOP tx to improve view of self, increase mood stability, and prevent decompensation. Narrative Note: []
--- NOTE | 2024-06-01 09:05 | BH.SGPN.GN ---
Behaviors/Verbalizations/Mental Status: [] Eye contact is good. Motor activity is appropriate. Appearance is casual. Speech is Appropriate. Mood is depressed and irritable. Affect is congruent. Thoughts are linear and logical. No evidence of psychosis. Reviewed daily check in sheet and no reports of suicidal ideations or intent. Client Response/Progress/Benefit: [] Pt participated when prompted. Attentive. Shared increased stress-inducing situations and events. ? I had a rough morning?. Reports feeling ?down today?. Also reported medication issues which he did not elaborate on. Therapist met with him after group. Ran out of two of his medications, which were called in by program nurse. Situational stressors are causing regression. Struggling to implement coping strategies independently when stressed. Limited progress. Benefited from group support, encouragement, and feedback. Will continue in IOP to maintain safety, stabilize mood, and improve functioning Narrative Note: []
--- NOTE | 2024-06-01 11:05 | BH.SGPN.GN ---
Behaviors/Verbalizations/Mental Status: []Eye contact is good. Motor activity is appropriate. Appearance is casual. Speech is Appropriate. Mood is anxious and dysthymic. Affect is congruent. Thoughts are linear and logical. No evidence of psychosis. Client Response/Progress/Benefit: []Pt was an engaged participant in group discussion. Engaged and attentive during psychoeducation and interactive discussion on coping skills, why people use unhealthy coping skills, how to replace unhealthy coping skills, and internal vs external coping skills. Attentive as peers came up with list of unhealthy coping skills. Pt reported personally, they tend to either shut down and isolate or distract with other things. Group discussed the effects of maladaptive coping skills on mental health. Benefited from increased understanding of unhealthy coping skills and the need for developing healthy internal and external coping skills. Actively participated during experiential group activity and was able to related this activity to group topic. Will continue in IOP to improve healthy thinking patterns, consistently apply healthy coping skills, and promote mood stability. Narrative Note: []
--- NOTE | 2024-06-01 11:15 | BH.SGPN.GN ---
Behaviors/Verbalizations/Mental Status: []Pt alert and oriented, casually dressed and groomed. Eye contact good. Motor activity appropriate. Speech within normal limits. Affect congruent, mood content. Thoughts linear, logical, no signs of hallucinations or delusions. Client Response/Progress/Benefit: [] Pt responded well to session, taking notes and contributing when prompted. Group discussed the different categories of coping skills which included distraction, emotional release, grounding, self-love, and thought challenging. Pt participated in creating a coping skills ?menu? from the different categories of coping skills. Pt's coping skill menu included: music, self-compassion, reality testing with support, and earthing. Appeared to benefit from increasing their repertoire of healthy coping skills. Will continue IOP to promote mood stability, increases self-confidence, and reduce negative thinking patterns. Narrative Note: []
--- NOTE | 2024-06-03 09:00 | BH.SGPN.GN ---
Behaviors/Verbalizations/Mental Status: [] Eye contact is good. Motor activity is appropriate. Appearance is casual. Speech is Appropriate. Mood is dysthymic. Affect is congruent. Thoughts are linear and logical. No evidence of psychosis. Reviewed daily check in sheet and no reports of suicidal ideations or intent. Client Response/Progress/Benefit: [] Pt was an active participant in group discussions. Attentive. Daily symptom tracker notes /5 for depression and 2/5 for anxiety. Did well to identify 2 mental health wins including being able to get to group today despite struggling with feeling he is in a slump and being hard on himself for struggling. Additional win noted as getting his new glasses and being able to better focus/see as a result. Stressor noted as being hard on himself for feeling he is in a rut and placing pressure on himself to get out of it. Pt able to connect with group feedback on acceptance and self-compassion. Benefited from group support, encouragement, and feedback. Will continue in IOP to prevent decompensation, promote mood stability, and increase consistent use of healthy coping. Narrative Note: []
--- NOTE | 2024-06-03 10:10 | BH.SGPN.GN ---
Behaviors/Verbalizations/Mental Status: []Pt alert and oriented, casually dressed and groomed. Eye contact good. Motor activity appropriate. Speech within normal limits. Affect congruent, mood euthymic. Thoughts linear, logical, no signs of hallucinations or delusions. Client Response/Progress/Benefit: [] Pt took notes and contributed to group discussions. Attentive during psychoeducation on growth mindset. Participated during the activity. Interactive group discussion on growth mindset in which group verbalized their current fixed mindsets and how they affect their mental health. Pt shared common fixed mindset thoughts they have. These thoughts lead to feeling disheartened about self and the world, not reaching out to others for help, and self-criticism. Pt shared a personal fixed thought I'll never get to where I want to be in life. Pt able to connect negative impact fixed thoughts have on functioning. Pt benefited from increased awareness of fixed thoughts and how fixed thoughts impact their mental health. Will continue IOP to improve distress tolerance, improve healthy coping, and prevent decompensation.
--- NOTE | 2024-06-03 11:10 | BH.SGPN.GN ---
Behaviors/Verbalizations/Mental Status: []Pt alert and oriented, casually dressed and groomed. Eye contact good. Motor activity appropriate. Speech within normal limits. Affect congruent, mood down. Thoughts linear, logical, no signs of hallucinations or delusions. Client Response/Progress/Benefit: [] Pt was an active participant during activity and discussion. Pt did well to remain attentive and participate as group worked on identifying characteristics and benefits of adopting a growth mindset. Worked with fellow participants in reframing the example fixed thoughts into growth mindset thoughts. Pt worked on changing own fixed thought and reframed the thought to ?I?m not where I want to be right now, but I?m closer than I was before.? Pt also wants to work on using dialectical thinking. Pt appeared to benefit from challenging own thoughts and engaging in the activity. Pt will continue IOP tx to promote mood stability, increase distress tolerance, and further increase work-related functioning. ?? Narrative Note: []
--- NOTE | 2024-06-05 10:15 | BH.SGPN.GN ---
Behaviors/Verbalizations/Mental Status: []Pt alert and oriented, casually dressed and groomed. Eye contact good. Motor activity appropriate. Speech within normal limits. Affect congruent, mood content. Thoughts linear, logical, no signs of hallucinations or delusions. Client Response/Progress/Benefit: []Pt was an active participant in group discussion and activity. Attentive during psychoeducation. Along with peers, pt was able to identify barriers to taking action in their life. Identified several symptoms and stressors that pt feels are holding them back from progress such as poor boundaries, lack of communication of needs, and negative self-talk. Stated these things have kept pt from taking chances on himself. Pt shared that she wants to begin addressing negative self-talk. Benefited from increased self-awareness of obstacles. Will continue IOP tx to improve mood stability, promote consistent skill application, and further improve self-confidence. Narrative Note: []
--- NOTE | 2024-06-05 10:31 | BH.MDN ---
Multi-Disciplinary Note Note 30-min Individual: Time Started:: 09:46 Date: 06/05/24 Purpose of session/treatment goals addressed:: To address recent stressors impacting pt depressive sx. Eye Contact:: Good Motor Activity:: Appropriate Appearance:: Casual Speech:: Appropriate Mood:: Anxious and Dysthymic Affect:: Congruent Thoughts:: Linear, Logical and No evidence of hallucinations/delusions noted Staff Interventions:: thought challenging, psychoeducation on: (intrusive thoughts), CBT techniques, discharge planning and strengths perspective Client Response:: Pt receptive of session, engaged throughout. Reports feeling a little on edge and anxious this morning as he overslept and was rushed. Went on to indicate that outside of this morning he feels his mood is overall continuing to improve and stated, ?I?m further away from wanting to kill myself than I have been in a very long time?. Attributes this to medication changes since beginning tx, inpatient hospitalization serving as a ?reality check?, as well as more intentional skill application. Shared that he has been trying to more actively give himself credit for his daily accomplishments, rather than criticizing himself for ?not doing enough?. More realistic expectations as a result. Noted that although his mood is improved, pt disclosed that he has recently been experiencing intrusive thoughts of while driving. Noted that these thoughts are disturbing to him and struggles with management. Noted that the more he tries to challenge these thoughts the more intense they seem. Pt appearing to benefit from normalization of his thoughts, noting that he had been judging himself for having them. Receptive of psychoeducation on intrusive thoughts and what can make an individual more susceptible to them. Connected with concept of focusing on the thoughts gives them meaning and value, therefore strengthening them. Pt reports plans to practice acknowledging and sitting with the discomfort of the intrusive thought. Risks/Concerns:: none noted. Pt denies SI, plan, or intent Progress Toward Goals/Plan:: Progress noted. Pt reports improved mood and increased self-care. Better communication within his relationship and less irritability. Noted reaching out to work to advocate for his needs and begin planning for return to work. Increased self-compassion, though continues to struggle with restlessness and self-doubt. Recommended continued IOP tx to improve mood stability, maintain gains, and prevent decompensation as pt transitions back to work. Time Stopped:: 10:05
--- NOTE | 2024-06-08 09:00 | BH.SGPN.GN ---
Behaviors/Verbalizations/Mental Status: [] Eye contact is good. Motor activity is appropriate. Appearance is casual. Speech is Appropriate. Mood is anxious. Affect is congruent. Thoughts are linear and logical. No evidence of psychosis. Reviewed daily check in sheet and no reports of suicidal ideations or intent. Client Response/Progress/Benefit: [] Pt participated in group discussions. Attentive. Daily symptom tracker notes 04/22 for depression and anxiety. ? I had a really good weekend?. Feeling ?anxious and happy?. Utilizing effective communication skills as well as calming and CBT strategies to manage distress. Believes that his relationship with GF is improving with increased trust. Shared stress and a myriad of emotions related to ?things I said? to his mother?s partner prior going into the psychiatric which has resulted in a very conflicted relationship. Benefited from group support, encouragement, and feedback. Will continue in IOP to prevent decompensation/re-admission to psych unit, stabilize mood, and increase healthy coping skills. Narrative Note: []
--- NOTE | 2024-06-08 10:20 | BH.SGPN.GN ---
Behaviors/Verbalizations/Mental Status: []Pt alert and oriented, neatly dressed and groomed. Eye contact good. Motor activity appropriate. Speech within normal limits. Affect congruent, mood euthymic. Thoughts linear, logical, no signs of hallucinations or delusions. Client Response/Progress/Benefit: [] Pt was attentive during psychoeducation and participated in group activity. Group discussed what contributes to a person?s perspective and how perspective can positively or negatively impact mental health treatment. Pt reflected on their perspective today and how it is impacting them. Pt shared their perspective is ?much better and it?s put me in a better mood.? Pt reports he has been trying to remind himself to enjoy the small things. Pt appeared to benefit from increasing awareness of different perspectives and how they can affect mental health. Pt will continue IOP tx to promote gains, combat distortions, and improve daily functioning. ?? Narrative Note: []
--- NOTE | 2024-06-08 11:20 | BH.SGPN.GN ---
Behaviors/Verbalizations/Mental Status: []Pt alert and oriented, casually dressed and groomed. Eye contact good. Motor activity appropriate. Speech within normal limits. Affect congruent, mood content. Thoughts linear, logical, no signs of hallucinations or delusions. Client Response/Progress/Benefit: []Pt was attentive and contributed to group discussion. Pt worked with group to identify strategies that can help with challenging negative perspective. Pt stated they can practice using affirmations to challenge negative perspective. Pt completed strengths exploration worksheet, identifying personal strengths. Pt able to acknowledge how these strengths are helping pt and can continue to help pt in mental health journey. Pt identified wanting to work on leaning on strength of love of learning. Benefited from identifying personal strengths and strategies for enhancing use of identified strengths. Pt will continue IOP tx to continue improve functioning, mood stability, and prevent decompensation. Narrative Note: []
--- NOTE | 2024-06-10 09:05 | BH.SGPN.GN ---
Behaviors/Verbalizations/Mental Status: [] Eye contact is good. Motor activity is appropriate. Appearance is casual. Speech is Appropriate. Mood is anxious. Affect is congruent. Thoughts are linear and logical. No evidence of psychosis. Reviewed daily check in sheet and no reports of suicidal ideations or intent Client Response/Progress/Benefit: [] Pt participated at times during the group discussions. Daily symptom tracker notes 2/5 for depression and anxiety. Pt reports he continues to benefit from IOP. Able to identify healthy habits. Increase energy, motivation, and productivity. ?I?ve been staying out of my head?. Increased confidence in managing thoughts when alone and not distracted. ?I?m allowing the thoughts to just happen?. Progress noted. Benefited from group support, encouragement, and feedback. Will continue in IOP to maintain safety, stabilize mood, and improve functioning. Narrative Note: []
--- NOTE | 2024-06-10 10:15 | BH.SGPN.GN ---
Behaviors/Verbalizations/Mental Status: [] Eye contact is fair. Motor activity is appropriate. Appearance is casual. Speech is Appropriate. Mood is depressed. Affect is constricted. Thoughts are linear and logical. No evidence of psychosis. Client Response/Progress/Benefit: [] Pt was an active participant during interactive group discussions. Along with peers contributed to interactive discussion on defining what a boundary is in mental health. Pt along with peers identified challenges and benefits to setting boundaries. Attentive during psychoeducation on types of boundaries (rigid, porous, flexible). Pt benefited from increased awareness and insight on the importance/benefit to setting health boundaries. Will continue in IOP to promote use of healthy coping skills, prevent decompensation/re-admission to psych unit, maintain safety, and improve functioning to return to work. Narrative Note: [] Behaviors/Verbalizations/Mental Status: [] Eye contact is fair. Motor activity is appropriate. Appearance is casual. Speech is Appropriate. Mood is depressed. Affect is constricted. Thoughts are linear and logical. No evidence of psychosis. Client Response/Progress/Benefit: [] Pt was an active participant during interactive group discussions. Along with peers contributed to interactive discussion on defining what a boundary is in mental health. Pt along with peers identified challenges and benefits to setting boundaries. Attentive during psychoeducation on types of boundaries (rigid, porous, flexible). Pt benefited from increased awareness and insight on the importance/benefit to setting health boundaries. Will continue in IOP to promote use of healthy coping skills, prevent decompensation/re-admission to psych unit, maintain safety, and improve functioning to return to work. Narrative Note: []
--- NOTE | 2024-06-10 12:12 | PCM.BH.PN ---
Progress Note Progress Note: History of Present Illness/Interim History: The patient is a 29-year-old single male with a history of depression, anxiety and PTSD who is seen in follow-up at the [facility] behavioral health IOP. Patient states that he feels he is learning valuable skills in the IOP. He is concerned however that he feels he is still gaining weight on the Abilify and also feels he has some blurred vision on the Abilify so wishes to decrease the dose. His mood is better and less depressed but he is very tired and fatigued. His sleep is variable at 4 to 8 hours a night. He denies hopelessness or anhedonia. He denies passive thoughts of , suicidal ideation, homicidal ideation, hallucinations or delusions. Current Psychiatric Medications: [] Abilify 5 mg p.o. daily (x 6 weeks); Lexapro 10 mg p.o. daily (x 6 weeks); trazodone 50 mg p.o. nightly; hydroxyzine 25 mg once or twice daily as needed for anxiety. Mental Status Examination: [] The patient is a 29-year-old male who appears normal for stated age and is casually dressed and groomed with good hygiene. He is ambulatory with a normal gait and has no psychomotor agitation or retardation. Eye contact is good and speech is normal rate and rhythm and fluent with no pressure. Mood is depressed and anxious but improving. Affect is mildly constricted. Thought process is goal-directed and organized. Thought content: Patient feels he is having side effects on Abilify. There is no evidence of passive thoughts of , suicidal ideation, homicidal ideation, plan for suicide, hallucinations or delusions. Reality testing is intact. Judgment is intact. Insight is fair and improving. Impulsivity is moderate to high. Diagnoses: [] 1. Major depressive disorder, recurrent, moderate 2. Anxiety disorder, NOS 3. PTSD 4. Strong cluster B traits 5. History of alcohol use disorder 6. Primary support issues Plan: [] The patient will continue the IOP and behavioral health at [facility] as the structure, support, education and group therapy will hopefully prevent worsening of the patient's symptoms which could require rehospitalization. He felt safe during the interview and if it anytime he does not feel safe he agrees to let us know or go to the emergency room. Due to the patient's complaint of side effects he wishes to decrease the dose of Abilify. He agrees to decrease the dose of Abilify to 2.5 mg p.o. daily. The other meds will continue at their current doses. I will see the patient in follow-up in 2 weeks and he will continue to follow-up with his outpatient providers. If his mood worsens we could increase the Lexapro dose at next visit.
--- NOTE | 2024-06-10 13:17 | BH.MDN_ITS ---
Multi-Disciplinary Note Note 45-min Individual: Time Started:: 11:36 Date: 06/10/24 Purpose of session/treatment goals addressed:: Purpose was to process an exchange between pt and his girlfriend impacting pt's mood and thinking patterns. Eye Contact:: Good Motor Activity:: Appropriate Appearance:: Casual Speech:: Appropriate Mood:: Irritable and Dysthymic Affect:: Congruent Thoughts:: Linear, Logical and No evidence of hallucinations/delusions noted Staff Interventions:: thought challenging, psychoeducation on: (effective communication), CBT techniques and taught coping skills (DEAR MAN) Client Response:: Pt receptive of session, actively engaged throughout. Reports ?I?m not too bad...could be better?. Shared feeling exhausted and used opposite action to get to group today as he knows ?it wont last? and staying home would have increased the likelihood of engaging in behaviors maintaining his low mood. Pt reflected that his mood may in part be related to a conversation with his girlfriend this morning regarding his mental health. Shared she noted that while he has made progress, she is concerned and frustrated by his ongoing struggles with motivation. Pt noted that he was not initially receptive of this feedback and tempted to respond by pointing out one of her flaws. However, he challenged himself not to and instead listened to her concerns. Worked with therapist to process emotions surrounding the conversation. Pt reports feeling that although her concerns are valid, he believes they have different expectations. Insight that his girlfriend is more type A and struggles to slow down, while pt is easier going and slower to do things. Reports wanting to readdress the conversation to identify ways they can support each other and come to a compromise regarding household responsibilities. Reviewed FRANCISR SAMI as a means of approaching this discussion. Risks/Concerns:: Daily symptom tracker notes no suicidal ideations, plan, or intent. Progress Toward Goals/Plan:: Progress variable. Pt reports actively applying several skills aimed at distress tolerance and emotion regulation. Continues to make progress in challenging negative self-talk and improving self- compassion. Pt overall indicates improved mood. Continues to struggle with fear of rejection and reassurance seeking within his relationship. Recommended continued IOP tx to improve mood stability and confidence, as well as improve functioning to return to work. Time Stopped:: 12:11
--- NOTE | 2024-06-15 09:05 | BH.SGPN.GN ---
Behaviors/Verbalizations/Mental Status: [] Eye contact is good. Motor activity is appropriate. Appearance is casual. Speech is Appropriate. Mood is euthymic. Affect is full. Thoughts are linear and logical. No evidence of psychosis. Reviewed daily check in sheet and no reports of suicidal ideations or intent. Client Response/Progress/Benefit: [] Pt participated at times during the group discussions. Attentive. Daily symptom tracker notes 04/22 for anxiety and irritability. ? I had a really good weekend?. Very active and engaged with support. Utilizing skills consistently. Discussed an event which required us of anger management. Feels ? growth? in regards to his mental health. Progress noted. Emotion today is ? anxious and stable?. Benefited from group support, encouragement, and feedback. Will continue in IOP to maintain safety, prevent decompensation/readmission to psych unit, and to improve functioning to return to work. Narrative Note: []
--- NOTE | 2024-06-15 10:10 | BH.SGPN.GN ---
Behaviors/Verbalizations/Mental Status: [] Client alert and oriented, casual appearance. Eye contact good. Motor activity appropriate. Speech within normal limits. Affect congruent, mood euthymic. Thoughts linear, logical, no signs of hallucinations or delusions. Client Response/Progress/Benefit: []Client engaged participant during group session as evidenced by contributions during group discussions, appearing to listen to others, and taking notes. Client engaged in discussion about barriers that keep people from having difficult confrontations. Group identified potential consequences to avoiding difficult conversations are resentment, increased anxiety, needs not met, increased conflict, and negative thoughts. Client appeared attentive during psychoeducation about techniques and skills to help have crucial conversations. Client seemed to benefit from increased awareness and education about importance of having difficult conversations and recognizing the impact of avoiding such conversations. Client to continue IOP to improve confidence, challenge distortions, and prevent decompensation. Narrative Note: []
--- NOTE | 2024-06-15 11:15 | BH.SGPN.GN ---
Behaviors/Verbalizations/Mental Status: []Pt alert and oriented, neatly dressed and groomed. Eye contact good. Motor activity appropriate. Speech within normal limits. Affect congruent, mood euthymic. Thoughts linear, logical, no signs of hallucinations or delusions. Client Response/Progress/Benefit: [] Pt was an active participant, engaged in activities and discussion. Pt able to identify ways they negatively contribute to crucial conversations and pt was engaged during psychoeducation of the different ways to build interpersonal effectiveness skills. Pt and peers practiced mirroring and active listening in partners. Group reviewed [employer] and used the handout to help map out how they would like a crucial conversation in their life to go. Pt identified a conversation pt needs to have with his employer about wanting a new position at work. Pt practiced I-statements and identified ways he could appear confident and assertive. Pt appeared to benefit from learning and practicing interpersonal effectiveness skills. Pt will continue IOP tx to promote mood stability, improve self-confidence, and reinforce healthy coping skills. Narrative Note: []
== END 2024-06-15 23:59 ==
LOC: BHIOP 07:37
PROVIDERS: Referring Provider Psychiatry & Neurology Psychiatry; Visit Provider Psychiatry & Neurology Psychiatry
DX: F33.2 Major depressive disorder, recurrent severe without psychotic features (principal); F41.9 Anxiety disorder, unspecified; F43.10 Post-traumatic stress disorder, unspecified; F10.91 Alcohol use, unspecified, in remission
CPT/HCPCS: S9480; 90832; 90834; 90853

== ENCOUNTER 2024-06-16 07:08 | Outpatient (RCR) | payer BC, SELFPAY ==
[2024-06-16 00:22] VITALS: BP 140/70; PULSE 83
== END 2024-06-25 12:08 | disposition home or self-care (01) ==
LOC: BHIOP 07:08
PROVIDERS: Referring Provider Psychiatry & Neurology Psychiatry; Visit Provider Psychiatry & Neurology Psychiatry
DX: F33.2 Major depressive disorder, recurrent severe without psychotic features (principal); F41.9 Anxiety disorder, unspecified; F43.10 Post-traumatic stress disorder, unspecified; F10.91 Alcohol use, unspecified, in remission
CPT/HCPCS: S9480; 90832; 90853